=== PATIENT | female | born 1985 | race Caucasian/White ===

== ENCOUNTER → 2018-04-15 | Outpatient (CLI) | payer OTHER | LOC: FIMAGING 13:47 | PROVIDERS: ATTEND Obstetrics & Gynecology | DX: O99.89 Other specified diseases and conditions complicating pregnancy, childbirth and the puerperium (principal); Z3A.12 12 weeks gestation of pregnancy ==

== ENCOUNTER → 2018-06-03 | Outpatient (CLI) | payer OTHER | LOC: FIMAGING 09:37 | PROVIDERS: ATTEND Obstetrics & Gynecology | DX: Z36.89 Encounter for other specified antenatal screening (principal); O99.012 Anemia complicating pregnancy, second trimester; D58.0 Hereditary spherocytosis; Z3A.19 19 weeks gestation of pregnancy; Z87.448 Personal history of other diseases of urinary system; Z90.81 Acquired absence of spleen; Z87.440 Personal history of urinary (tract) infections ==